=== PATIENT | male | born 1970 | race African-American/Black ===

== ENCOUNTER 2018-09-11 16:09 | Emergency (ER) | payer BC ==
[2018-09-11] MEDS ORDERED: Cyclobenzaprine 10 MG TAB ONE (16:45)
[2018-09-11] MEDS ORDERED: Acetaminophen 325 MG TAB ONE (16:45)
[2018-09-11] MEDS ORDERED: Ibuprofen 800 MG TAB ONE (16:45)
[2018-09-11] MEDS ORDERED: HYDROcodone/Acetaminophen 5/325 mg Tablet ONE (16:45)
== END 2018-09-11 16:56 | disposition home or self-care (01) ==
LOC: MADERS 16:09
DX: S39.012A Strain of muscle, fascia and tendon of lower back, initial encounter (principal); F17.210 Nicotine dependence, cigarettes, uncomplicated; X50.1XXA Overexertion from prolonged static or awkward postures, initial encounter
CPT/HCPCS: 99283

== ENCOUNTER 2018-12-02 18:44 | Emergency (ER) | payer BC ==
--- NOTE | 2018-12-02 19:42 | RAD ---
EXAM: XR Hand Lt 3 View STANDARD PROVIDED CLINICAL HISTORY: Pain FINDINGS: There is no evidence for fracture or other acute osseous abnormality. Alignment appears anatomic. Tata nt spaces appear preserved. IMPRESSION: No evidence for an acute osseous abnormality. If there is persistent clinical concern, conservative m anagement and follow-up imaging advised.
== END 2018-12-02 20:18 | disposition home or self-care (01) ==
LOC: MADERS 18:44
DX: G56.02 Carpal tunnel syndrome, left upper limb (principal); F17.210 Nicotine dependence, cigarettes, uncomplicated

== ENCOUNTER 2019-03-06 17:01 | Emergency (ER) | payer BC ==
[2019-03-06] MEDS ORDERED: Ketorolac Tromethamine 60 MG/2 ML VIAL ONE (18:07)
== END 2019-03-06 18:20 | disposition home or self-care (01) ==
LOC: MADERS 17:01
DX: G62.9 Polyneuropathy, unspecified (principal)
CPT/HCPCS: 96372; 99283; J1885